=== PATIENT | female | born 1960 | race Caucasian/White ===

== ENCOUNTER 2024-08-19 14:48 | Emergency (ER) | payer MEDICARE ==
[~2024-08-19] VITALS: Ht 170.2 cm; Wt 117.9 kg
[~2024-08-19 14:48] MED LIST: PREMARIN0.625 MG PO
[2024-08-19 14:52] VITALS: TEMP 98.5
[2024-08-19 15:23] LABS: BASOPHILS % 0.2 % (0.0-1.0); EOSINOPHILS % 0.1 % (0.0-6.0); HEMATOCRIT 43.2 % (34.2-44.1); HEMOGLOBIN 14.4 g/dL (12.0-16.0); LYMPHOCYTES # (AUTO) 0.7 (1.0-3.2); MEAN CORPUSCULAR HEMOGLOBIN 28.9 pg (28-32); MEAN CORPUSCULAR HGB CONC 33.3 g/dL (31-35); MEAN CORPUSCULAR VOLUME 86.7 fL (81-99); MONOCYTES # (AUTO) 0.1 (0.2-0.8); MONOCYTES % 1.1 % (4.4-11.3); NEUTROPHILS # (AUTO) 10.5 (2.1-6.9); NEUTROPHILS % 92.1 % (38.7-80.0); PLATELET COUNT 295 x10e3/uL (140-360); RED BLOOD COUNT 4.98 x10e6/uL (3.6-5.1)
[2024-08-19] MEDS ORDERED: SODIUM CHLORIDE FLUSH 10 ML SYR IV PRN (15:30)
[2024-08-19 15:48] LABS: ALANINE AMINOTRANSFERASE 44 IU/L (0-55); ALBUMIN 3.7 g/dL (3.5-5.0); ALKALINE PHOSPHATASE 131 IU/L (40-150); ANION GAP 17.1 mmol/L (8-16); BILIRUBIN,TOTAL 0.5 mg/dL (0.2-1.2); BLOOD UREA NITROGEN 13 mg/dL (7-26); BUN/CREATININE RATIO 12 (6-25); CALCIUM 9.4 mg/dL (8.4-10.2); CARBON DIOXIDE 20 mmol/L (22-29); CHLORIDE 107 mmol/L (98-107); EST GLOMERULAR FILTRATION RATE 55 ML/MIN (>=60); GLUCOSE 154 mg/dL (74-118); POTASSIUM 4.1 mmol/L (3.5-5.1); SODIUM 140 mmol/L (136-145); TOTAL PROTEIN 7.5 g/dL (6.5-8.1)
[2024-08-19 15:55] LABS: TROPONIN I < 0.001 ng/mL (0-0.300)
[2024-08-19] MEDS: METOCLOPRAMIDE HCL 10 MG/2ML VIAL IV ONE (16:12)
[2024-08-19] MEDS: KETOROLAC TROMETHAMINE 30 MG/ML VIAL IV STA (16:12)
[2024-08-19] MEDS: BELLADONNA ALK/PHENOBARBITAL 5 ML UDC PO STA (16:12)
[2024-08-19] MEDS: LIDOCAINE VISC 2% SOLN 15 ML UDC PO ONE (16:13)
[2024-08-19] MEDS: DIPHENHYDRAMINE HCL 25 MG CAP PO ONE (16:13)
[2024-08-19] MEDS: MAGNESIUM/ALUMINUM/SIMETHICONE 30 ML UDC PO ONE (16:13)
[2024-08-19] MEDS: SODIUM CHLORIDE 0.9% 1000ML 1,000 ML IV SCH (16:14)
[2024-08-19 17:42] VITALS: PULSE 70; RESP 16
[2024-08-19] MEDS ORDERED: PANTOPRAZOLE SO40 MG PO (20:11)
[2024-08-19] MEDS ORDERED: ONDANSETRON ODT4 MG SL (20:11)
[2024-08-19] MEDS ORDERED: DICYCLOMINE HCL20 MG PO (20:11)
[2024-08-19 20:32] VITALS: BP 153/81; PULSE 72; RESP 16; TEMP 98.5; O2SAT 95
== END 2024-08-19 20:31 | disposition home or self-care (01) ==
LOC: ER 15:45
DX: R06.02 Shortness of breath (principal); R07.89 Other chest pain; K80.20 Calculus of gallbladder without cholecystitis without obstruction; K80.50 Calculus of bile duct without cholangitis or cholecystitis without obstruction; M54.6 Pain in thoracic spine; R51.9 Headache, unspecified; I10 Essential (primary) hypertension; F41.9 Anxiety disorder, unspecified; G47.00 Insomnia, unspecified; Z96.651 Presence of right artificial knee joint; Z98.84 Bariatric surgery status; R94.31 Abnormal electrocardiogram [ECG] [EKG]
CPT/HCPCS: 36415; 71045; 76705; 80053; 84484; 85025; 93005; 94760; 99284; J1885; J2470; J2765; J7030

== ENCOUNTER 2024-09-17 14:06 | Emergency (ER) | payer MEDICARE ==
[~2024-09-17] VITALS: Ht 170.2 cm; Wt 109.8 kg
[~2024-09-17 14:06] MED LIST changes: +DICYCLOMINE HCL20 MG PO; +ONDANSETRON ODT4 MG SL; +PANTOPRAZOLE SO40 MG PO
[2024-09-17] MEDS: TETANUS/DIPHTHERIA TOX ADULT 0.5 ML SYR IM ONE (14:52)
[2024-09-17] MEDS: BACITRACIN ZINC 0.9GM TP ONE (16:53)
[2024-09-17] MEDS: HYDROCODONE/APAP 5MG-325MG TAB PO ONE (17:05)
[2024-09-17 17:08] VITALS: PULSE 70; RESP 20; TEMP 98.6; O2SAT 95
[2024-09-17] MEDS ORDERED: CEPHALEXIN500 MG PO (17:15)
== END 2024-09-17 17:27 | disposition home or self-care (01) ==
LOC: FSED 14:32
DX: S92.345A Nondisplaced fracture of fourth metatarsal bone, left foot, initial encounter for closed fracture (principal); S91.332A Puncture wound without foreign body, left foot, initial encounter; W20.8XXA Other cause of strike by thrown, projected or falling object, initial encounter; Y92.89 Other specified places as the place of occurrence of the external cause; I10 Essential (primary) hypertension; G47.00 Insomnia, unspecified; F41.9 Anxiety disorder, unspecified; Z98.84 Bariatric surgery status
CPT/HCPCS: 73630; 90471; 90714; 99284; J0690

== ENCOUNTER → 2024-10-04 | Day surgery (SDC) | payer MEDICARE ==
[2024-09-26 10:01] LABS: BASOPHILS % 0.9 % (0.0-1.0); EOSINOPHILS % 2.2 % (0.0-6.0); LYMPHOCYTES % 26.1 % (18.0-39.1); MONOCYTES % 7.3 % (4.4-11.3); NEUTROPHILS % 63.0 % (38.7-80.0); RED CELL DISTRIBUTION WIDTH 13.1 % (11.7-14.4)
[2024-09-26 10:39] LABS: EST GLOMERULAR FILTRATION RATE 71.0 ML/MIN (>=60)
[~2024-10-04] MED LIST changes: +ACETAMINOPHEN 1000 MG/100 ML 100 ML IV ONE; +AMBIEN10 MG PO; +CEPHALEXIN500 MG PO; +DEXAMETHASONE SOD PHOS INJ 4 MG/ML SDV ONE; +EPHEDRINE SULFATE INJ 50 MG/ML VIAL ONE; +EXFORGE 10-1601 EACH; +FENTANYL CITRATE/PF 100MCG/2 ML INJ ONE; +LIDOCAINE HCL 2% LOCAL INJ 5 ML SDV VIAL INJ ONE; +MIDAZOLAM HCL 2 MG/2 ML VIAL ONE; +ONDANSETRON HCL INJ 2MG/ML 2ML 2 MG/ML VIAL ONE; +PROPOFOL IV EMULSION 10 MG/ML 20 ML VIAL ONE; +ROCURONIUM BROMIDE 1 ML IV ONE; +SUGAMMADEX SODIUM 200 MG/2 ML VIAL IV ONE
[2024-10-04] MEDS: LACTATED RINGER'S 1,000 ML ONE (09:37)
[2024-10-04] MEDS: ONDANSETRON HCL INJ 2MG/ML 2ML 2 MG/ML VIAL ONE (14:25)
[2024-10-04 14:30] VITALS: BP 151/87; PULSE 60; RESP 17; O2SAT 98
== END | disposition home or self-care (01) ==
LOC: OR 08:00
PROVIDERS: ATTEND Surgery
DX: K80.10 Calculus of gallbladder with chronic cholecystitis without obstruction (principal); K76.0 Fatty (change of) liver, not elsewhere classified; I10 Essential (primary) hypertension; E66.9 Obesity, unspecified; Z01.810 Encounter for preprocedural cardiovascular examination; Z01.812 Encounter for preprocedural laboratory examination; Z01.818 Encounter for other preprocedural examination; Z79.899 Other long term (current) drug therapy; Z68.39 Body mass index [BMI] 39.0-39.9, adult
CPT/HCPCS: 36415; 71046; 80053; 85025; 88304; 93005; C1766; J1100; J2003; J2250; J2405